=== PATIENT | female | born 1955 | race Caucasian/White ===

== ENCOUNTER 2020-09-27 15:48 | Outpatient (REF) | payer MEDICARE, BC, SELFPAY | END 2020-09-27 15:49 | disposition home or self-care (01) | LOC: HO.LAB 15:48 | PROVIDERS: Visit Provider Internal Medicine | DX: Z20.828 Contact with and (suspected) exposure to other viral communicable diseases (principal) | CPT/HCPCS: C9803; U0003 ==

== ENCOUNTER 2021-02-12 11:58 | Outpatient (REF) | payer MEDICARE, BC, SELFPAY | END 2021-02-12 11:59 | disposition home or self-care (01) | LOC: HO.HMGCLDS 11:58 | PROVIDERS: PCP Physician Assistant Medical; Visit Provider Internal Medicine | DX: Z20.822 Contact with and (suspected) exposure to COVID-19 (principal) | CPT/HCPCS: C9803; U0003; U0005 ==

== ENCOUNTER 2023-11-01 14:39 | Outpatient (AMB) | payer MEDICARE, SELFPAY ==
--- NOTE | 2023-11-01 14:52 | AM.OFFWIN_ITS ---
Intake Vital Signs 11/01/23 14:57 Height 5 ft 4 in Weight 139 lb BMI 23.9 BP 130/74 Blood Pressure Location Lt brachial Position Sitting Pulse 78 Pulse Source Pulse Oximeter Temp 98.2 F Temp Source Oral Pulse Oximetry (%) 97 Oxygen Delivery Method Room Air Intake Visit Reasons: EP cough chest tight Intake Note: pt is here for c.o cough for over weeks with chest congestion and tightness Patient Tobacco Use Status: Never used Tobacco Allergies No Known Allergies Allergy (Verified 11/01/23 15:31) Do you need a note to return to daycare/school/sports/work: No HPI EP cough chest tight HPI Details 68-year-old [facility]. Patient is reporting symptoms of an irritating nonproductive cough for the past month. Symptoms are worse at night with wheezing. She is just completing a course of Zithromax. [facility] Social History Patient Tobacco Use Status: Never used Tobacco Physical Exam Vital Signs: Last Vital Signs Temp 98.2 F 11/01/23 14:57 Pulse 78 11/01/23 14:57 BP 130/74 11/01/23 14:57 Pulse Ox 97 11/01/23 14:57 Oxygen Delivery Method Room Air 11/01/23 14:57 BMI result Body Mass Index 23.9 Const General: cooperative and healthy appearing Nutritional Appearance: well nourished Orientation/consciousness: patient oriented x3 Limitations: no limitations HEENT Head: Yes normal to inspection Eyes General: appearance normal, both eyes and all related structures Neck Neck: Yes normal visual inspection Chest Chest palpation & inspection: normal palpation of entire chest wall Resp Other: Scattered wheeze bilaterally. Effort & Inspection: normal respiratory effort Neuro General: patient oriented x3 Assessment & Plan Assessment & Plan (1) Acute bronchitis: Code(s): J20.9 - Acute bronchitis, unspecified Plan: Prednisone and albuterol called in. If symptoms do not improve to follow-up here. Chest x-ray was reviewed by me personally. No infiltrate seen. Orders: Orders XR chest 2V Today R05.9 - Cough, unspecified Coding Level of Care Code Est Pt Level 4 (26984) Diagnoses Acute bronchitis J20.9
[2023-11-01 14:57] VITALS: BP 130/74; PULSE 78; TEMP 36.8; O2SAT 97; BMI 23.9
== END 2023-11-01 15:32 | disposition home or self-care (01) ==
PROVIDERS: PCP Physician Assistant Medical; Visit Provider Internal Medicine
DX: J20.9 Acute bronchitis, unspecified (principal)
CPT/HCPCS: 99214

== ENCOUNTER 2023-11-01 15:21 | Outpatient (REF) | payer MEDICARE, SELFPAY ==
--- NOTE | ~2023-11-01 | XR_ITS ---
EXAMINATION: XR CHEST CLINICAL INFORMATION: Cough COMPARISON: None available. TECHNIQUE: 2 views of the chest were obtained. FINDINGS: No significant abnormality is noted involving the heart, lungs, mediastinum, bony thorax or soft tissues. XR/XR chest 2V IMPRESSION: Unremarkable examination.
== END 2023-11-01 15:22 | disposition home or self-care (01) ==
LOC: HO.HMGCX 15:21
PROVIDERS: PCP Physician Assistant Medical; Visit Provider Internal Medicine
DX: R05.9 Cough, unspecified (principal)
CPT/HCPCS: 71046

== ENCOUNTER 2024-04-21 09:12 | Outpatient (AMB) | payer MEDICARE, SELFPAY ==
[2024-04-21 09:13] VITALS: BP 112/74; PULSE 78; TEMP 36.7; O2SAT 97
--- NOTE | 2024-04-21 09:13 | MHC.OFFWIV ---
Intake Vital Signs 04/21/24 09:13 Height 5 ft 4 in BP 112/74 Blood Pressure Location Lt brachial Position Sitting Pulse 78 Pulse Source Pulse Oximeter Temp 98.1 F Temp Source Temporal Artery Scan Pulse Oximetry (%) 97 Intake Visit Reasons: EP LT eye sty Intake Note: pt is here for left eye sty Patient Tobacco Use Status: Never used Tobacco Allergies No Known Allergies Allergy (Verified 04/21/24 09:14) Do you need a note to return to daycare/school/sports/work: No HPI EP LT eye sty HPI Details This is a 69 year old female patient who presents to the walk-in clinic today for a stye on her left upper eyelid. She has had this for about 1 week. Has been using warm compresses and otc towelettes for this without resolution of stye. She does not wear contacts. She has not been wearing any makeup. Denies any eye pain, vision changes, or discharge from eye. Reports upper lid is very itchy and now her left eye has started to appear bloodshot. [facility] Social History Patient Tobacco Use Status: Never used Tobacco Review of Systems Const All systems reviewed & are unremarkable except as noted in HPI and below Physical Exam Vital Signs: Last Vital Signs Temp 98.1 F 04/21/24 09:13 Pulse 78 04/21/24 09:13 BP 112/74 04/21/24 09:13 Pulse Ox 97 04/21/24 09:13 Const General: cooperative and no acute distress Eyes Eyelids: Yes eyelid abnormality (hordeolum left upper lid) Conjunctivae: conjunctival abnormal left conjunctival injection diffuse Pupils: Equal, round and reactive pupils present and Pupil accommodation reflex normal EOM: EOMs intact bilaterally Direct Ophthalmoscopy: normal light reflex Neck Neck: Yes no lymphadenopathy Resp Effort & Inspection: normal respiratory effort Neuro Cranial nerves: Yes Equal, round and reactive pupils present Psych Appearance: grossly normal Mental Status: mental status grossly normal Speech and movement: Normal speech and movement present Assessment & Plan Assessment & Plan (1) Hordeolum of left upper eyelid: Code(s): H00.014 - Hordeolum externum left upper eyelid Qualifiers: Hordeolum type: externum Qualified Code(s): H00.014 - Hordeolum externum left upper eyelid Plan: Advised patient to continue with warm compress application. Her upper lid is slightly swollen and she has conjuntival injection - I am going to start her on an erythromycin ointment to apply in addition to conservative measures. We discussed indications, use, possible side effects of this. If he does not improve with treatment, and stye does not start to resolve or certainly if symptoms worsen, she should return to the clinic further evaluation. She verbalizes understanding and agrees to. Medications: New erythromycin Apply 0.5 inch to lower lid of left eye 4 times daily for 5 days 1 appl ophthalmic (eye) BID 5 days 3.5 grams 1RF H00.014 - Hordeolum externum left upper eyelid Coding Level of Care Code Est Pt Level 4 (71755) Diagnoses Hordeolum externum of left upper eyelid H00.014 Hordeolum type: externum
--- OUTSIDE RECORDS SUMMARY | 2024-04-21 09:13 | XMS_ITS | Continuity of Care Document ---
Author Organization [facility] C ancer [facility] Address [address] [place] [address]- Care Team Providers Care Reporter Name Role Phone Not on Staff, PCP Primary Care Physician Unavail able Encounter [facility] Date(s): 12/28/19 - 01/07/20 [facility] [address] [place] [address]- [facility] Attending Physician: Chanelle Miller Admitting Physician: AdmChanelle almeida Referring Physician: Admtr ArJett Allergies, Adverse Reactions, Alerts Substance Reaction Severity Status Nickel Active Medications aspirin 81 mg oral tablet 1 tablet = 81 mg, By Mouth, Daily, 0 Refills, Maintenance, 07/05/19 14:11:10 EDT Start Date: 07/05/19 Status: Ordered atorvastatin 40 mg oral tablet 1 tablet = 40 mg, By Mouth, Daily at bedtime, 0 Refills, Maintenance Start Date: 05/24/12 Status: Ordered Hydrea 500 mg oral capsule 1 capsule = 500 mg, By Mouth, Daily, Adjust as instructed by MD's office based on serial CBCs, # 90capsule, 1 Refills, Maintenance, 12/18/19 10:59:00 EDT, [id number], 163, cm, 07/05/19 13:38:00 EDT, Height, 63, kg, 07/05/19 13:38:00 EDT, Dry... Start Date: 12/18/19 Status: Ordered lisinopril 10 mg oral tablet 10 mg, 1, tablet, By Mouth, Daily, Refills 0, Maintenance, 12/08/18 1:16:33 EST Start Date: 12/08/18 Status: Ordered Synthroid 0.112 mg oral tablet 1 tablet, By Mouth, Daily, # 30 tablet, 5 Refills, Maintenance, Tablet Start Date: 06/22/12 Status: Ordered Problem List Condition Effective Dates Status Health Status Inform ant CAD - Coronary artery disease(Confirmed) Active Hyperlipidemia(Confirmed) Active Social History Social History Type Response Smoking Status Former smoker, quit more than 30 days ago entered on: 11/30/18 Sex
--- OUTSIDE RECORDS SUMMARY | 2024-04-21 09:13 | XMS_ITS | Continuity of Care Document ---
Author Organization [facility] an[facility] Address [address] [place] [address]- Care Team Providers Care Residential Roofer Helper Name Role Phone Angie Bailey MD Primary Care Physician [id number] Date(s): 08/19/22 - 12/14/22 [facility] [address] [place] [address]- Discharge Disposition: A-D/C Home Attending Physician: Vahe Sharp MD Admitting Physician: Vahe Sharp MD Referring Physician: Angie Bailey MD Allergies, Adverse Reactions, Alerts Substance Reaction Severity Status Nickel skin irritation,rash Active Medications aspirin 81 mg oral tablet 1 tablet = 81 mg, By Mouth, Every other day, 0 Refills, Maintenance, 07/05/19 14:11:10 EDT Start Date: 07/05/19 Status: Ordered atorvastatin 40 mg oral tablet 1 tablet = 40 mg, By Mouth, Daily at bedtime, 0 Refills, Maintenance Start Date: 05/24/12 Status: Ordered Eligen B12 1000 mcg oral tablet 1 tablet, By Mouth, Daily, 0 Refills, Maintenance, 01/06/22 13:29:00 EDT, Partial fill upon patientrequest if the prescription is for a schedule II opioid drug. Start Date: 01/06/22 Status: Ordered hydroxyurea 500 mg oral capsule 1 TO 2 CAPSULES, By Mouth, Daily, # 180 capsule, 3 Refills, [facility], 162.56, cm, 01/06/22 10:34:00 EDT, Height, 64.1, kg, 01/06/22 10:34:00 EDT, Dry Weight Start Date: 04/14/22 Status: Ordered levothyroxine 0.088 mg oral tablet 1 tablet = 88 mcg, By Mouth, Daily, 0 Refills, Maintenance, 02/12/21 13:44:00 EDT, Partial fill upon patient request if the prescription is for a schedule II opioid drug. Start Date: 02/12/21 Status: Ordered Vitamin D3 1000 intl units oral capsule 1 capsule = 1,000 International_Units, By Mouth, Daily, # 75 capsule, 0 Refills, Maintenance, 01/08/20 8:18:00 EDT, Capsule Start Date: 01/08/20 Status: Ordered Problem List Condition Confirmation Course Effective Dates Status H ealth Status Informant CAD - Coronary artery disease Confirmed Active Hyperlipidemia Confirmed Active Adnexal mass Confirmed Active Social History Social History Type Response Smoking Status Former smoker, quit more than 30 days ago entered on: 11/30/18 Sex Patient Care team information Care Team Personnel Name: Ruby Frias RN Position: [facility] SN RN Member Role: Primary Care Nurse Name: Angie Bailey MD Position: [facility] Outreach Member Role: PCP Address: Address: [address] [place] [address] - [address] [place], [place], [place] [address] Care Team Related Persons Name: ANGIE URIARTE Address: home [address] [place] [address] Name: DOUGLAS MERINO Address: home [address] [place] [address]
--- OUTSIDE RECORDS SUMMARY | 2024-04-21 09:13 | XMS_ITS | Continuity of Care Document ---
Author Organization [facility] C an[facility] Address [address] [place] [address]- Care Team Providers Care Show Horse Driver Name Role Phone Lynn GILLIS, Nitish Mccormick Primary Care Physician [phone] [id number] Date(s): 12/28/19 - 04/12/20 [facility] [address] [place] [address]- [facility] Discharge Disposition: A-D/C Home Attending Physician: Vahe Sharp MD Admitting Physician: Vahe Sharp MD Referring Physician: Not on Staff, Referring MD Allergies, Adverse Reactions, Alerts Substance Reaction [...] Status: Ordered Hydrea 500 mg oral capsule See Instructions, 1 tablet alternating with 2 tablets by Mouth Daily, # 45 capsule, 5 Refills, Maintenance, 02/12/20 10:52:00 EDT, [id number], 162.56, cm, 01/30/20 6:21:00 EDT, Height, 60.3, kg, 01/30/20 6:21:00 EDT, Dry Weight Start Date: 02/12/20 Status: Ordered Hydrea 500 mg oral capsule 1 capsule = 500 mg, By Mouth, Daily, Adjust as instructed by MD's office based on serial CBCs, # 90capsule, 1 Refills, Maintenance, 12/18/19 10:59:00 EDT, [id number], 163, cm, 07/05/19 13:38:00 EDT, Height, 63, kg, 07/05/19 13:38:00 EDT, Dry... Start Date: 12/18/19 Status: Ordered levothyroxine 125 mcg (0.125 mg) oral tablet TAKE 1 TABLET BY MOUTH EVERY DAY Start Date: 02/21/20 Status: Ordered lisinopril 10 mg oral tablet 10 mg, 1, tablet, By Mouth, Daily, Refills 0, Maintenance, 12/08/18 1:16:33 EST Start Date: 12/08/18 Status: Ordered Vitamin D3 1000 intl units oral capsule 1 capsule = 1,000 International_Units, By Mouth, Daily, # 75 capsule, 0 Refills, Maintenance, 01/08/20 8:18:00 EDT, Capsule Start Date: 01/08/20 Status: Ordered Problem List Condition Effective Dates Status Health Status Inform ant CAD - Coronary artery disease(Confirmed) Active Hyperlipidemia(Confirmed) Active Adnexal mass(Confirmed) Active Social History Social History Type Response Smoking Status Former smoker, quit more than 30 days ago entered on: 11/30/18 Sex
--- OUTSIDE RECORDS SUMMARY | 2024-04-21 09:13 | XMS_ITS | Continuity of Care Document ---
Author Organization [facility] ter Address [address] [place] [address]- Care Team Providers Care Fisheries Technical Officer Name Role Phone Bharati GILLIS, Slick Duque Primary Care Physician [phone] Encounter [facility] Date(s): 10/23/19 - 10/30/[address] [address]- [facility] Attending Physician: Aron GILLIS, Vahe Bajwa Allergies, Adverse Reactions, Alerts Substance Reaction Severity [...] MD's office based on serial CBCs, # 30capsule, 5 Refills, Maintenance, 07/20/19 15:22:51 EDT Start Date: 07/20/19 Status: Ordered lisinopril 10 mg oral tablet [...]
--- OUTSIDE RECORDS SUMMARY | 2024-04-21 09:13 | XMS_ITS | Continuity of Care Document ---
Author Organization [facility] C [facility] Address [address] [place] [address]- Care Team Providers Care Internal Carver Name Role Phone Lynn GILLIS, Angie Mccormick Primary Care Physician Encounter [facility] Date(s): 09/06/23 - 10/06/23 [facility] [address] [place] [address] Allergies, Adverse Reactions, Alerts Substance Reaction Severity [...] opioid drug. Start Date: 01/06/22 Status: Ordered Hydrea 500 mg oral capsule 1-2 capsule, By Mouth, Daily, dose varies based on CBCs, # 180 capsule, 5 Refills, Maintenance, 07/13/23 9:25:00 EDT, [id number], Partial fill upon patient request if the prescription is for a schedule II opioid drug., 162.56, cm, ... Start Date: 07/13/23 Status: Ordered hydroxyurea 500 mg oral capsule 1 TO 2 CAPSULES, By Mouth, Daily, # 180 capsule, 3 Refills, [facility], 162.56, cm, 01/06/22 10:34:00 EDT, Height, 64.1, [...] Team Personnel Name: Ruby Frias RN Position: [facility] SN RN Member Role: Primary Care Nurse Name: Lorie Clay Position: [facility] Onco RN Member Role: Primary Care Nurse Name: Angie Bailey MD Position: [facility] Outreach Member Role: PCP Address: Address: [address] [place] [address] - [address] [employer] [employer], [place] [address]- Care Team Related Persons Name: ANGIE URIARTE Address: [address] [place] [address] Name: DOUGLAS MERINO Address: [address] [place] [address]
--- OUTSIDE RECORDS SUMMARY | 2024-04-21 09:13 | XMS_ITS | Continuity of Care Document ---
Author Organization [facility] Address [address] [place] [address]- Care Team Providers Care Heel Room Supervisor Name Role Phone Nitish Bailey MD Primary Care Physician [phone] Encounter [facility] Date(s): 06/07/20 - 07/07/20 [facility] [address] [place] [address]- [facility] Allergies, Adverse Reactions, Alerts Substance Reaction Severity Status Nickel skin irritation,rash Active Medications aspirin 81 mg oral tablet 1 tablet = 81 mg, By Mouth, Every other day, 0 Refills, Maintenance, 07/05/19 14:11:10 EDT Start Date: 07/05/19 Status: Ordered atorvastatin 40 mg oral tablet 1 tablet = 40 mg, By Mouth, Daily at bedtime, 0 Refills, Maintenance Start Date: 05/24/12 Status: Ordered hydroxyurea 500 mg oral capsule 1 capsule, By Mouth, Daily, DIRECTED BY [facility] OFFICE., # 90 capsule, 1 Refills, Acute, 05/30/20 11:50:00 EDT, [facility], 162.56, cm, 02/21/20 11:29:00 EDT, Height, 60.3, kg, 01/30/20 6:21:00 EDT, Dry Weight Start Date: 05/30/20 Status: Ordered levothyroxine 125 mcg (0.125 mg) [...]
--- OUTSIDE RECORDS SUMMARY | 2024-04-21 09:13 | XMS_ITS | Continuity of Care Document ---
Author Organization [facility] C ancer Care Address [address] [place] [address]- Care Team Providers Care Crop Duster Helper Name Role Phone Sarah Hensley Primary Care Physician Encounter [facility] Date(s): 12/23/22 - 02/07/24 [facility] [address] [place] [address] Discharge Disposition: A-D/C Home Attending Physician: Funmilayo Aguilar MD Admitting Physician: Funmilayo Aguilar MD Referring Physician: Sarah Hensley Allergies, Adverse Reactions, Alerts Substance Reaction Severity [...] Mouth, Daily, # 180 capsule, 3 Refills, [facility], 162.56, cm, 01/06/22 10:34:00 EDT, Height, 64.1, [...] Hyperlipidemia Confirmed Active Adnexal mass Confirmed Active Vital Signs Most recent to oldest [Reference Range]: 1 2 Height 162.56 cm (07/13/23 9:13 AM) 162.56 cm (01/05/23 10:00 AM) Weight 63.6 kg (07/13/23 9:13 AM) 63.8 kg (01/05/23 10:00 AM) Oxygen Saturation [94-100 %] 99 % (07/13/23 9:13 AM) 99 % (01/05/23 10:00 AM) Pulse Rate [55-90 bpm] 59 bpm (07/13/23 9:13 AM) 56 bpm (01/05/23 10:00 AM) Body Mass Index [18.5-24.99 kg/m2] 24.07 kg/m2 (07/13/23 9:13 AM) 24.14 kg/m2 (01/05/23 10:00 AM) Blood Pressure [90-138/55-84 mm Hg] 123/ 75mm Hg (07/13/23 9:13 AM) 129/77mm Hg (01/05/23 10:00 AM) Temperature [96.8-100.4 DegF] 98.5 DegF (07/13/23 9:13 AM) 98.2 DegF (01/05/23 10:00 AM) Mode of Delivery (Oxygen) Room air (07/13/23 9:13 AM) Room air (01/05/23 10:00 AM) Blood pressure sites Arm, right (07/13/23 9:13 AM) Arm, right (01/05/23 10:00 AM) Temperature Route Oral (07/13/23 9:13 AM) Temporal (01/05/23 10:00 AM) Dry Weight 63.6 kg (07/13/23 9:13 AM) 63.8 kg (01/05/23 10:00 AM) Weight Obtained Via Standing scale (07/13/23 9:13 AM) Standing scale (01/05/23 10:00 AM) Dry Weight Obtained Via Standing scale (07/13/23 9:13 AM) Standing scale (01/05/23 10:00 AM) Social History Social History Type Response Smoking Status Former smoker, quit more than 30 days ago entered on: 11/30/18 Sex Note * Malu Nickerson MA: PERFORM, SIGN, VERIFY Event Display: Patient Education/Instruction Authored Date: [id number] [facility] *Heme/Onc Adult Clinical Summary Name HORTENCIA FERGUSON Age 67 Years 1955 PCP Lynn GILLIS, Angie Mccormick PCP Visit Date 12/23/2022 15:54:00 Additional Instructions: Scheduled Appointments?? Future Appointments ?No Future Appointments Scheduled Follow-Up Instructions ?? With: Address: When: Vahe Sharp [address] [place] [address] for Cancer Care, [facility] [place] [address] Business (1) 07/13/2023 9:15 AM Diagnosis Medications: Please continue your medications until treatment is completed or stopped by your provider. Discuss any questions related to medications with your provider. Medications to Continue with No Changes These medications were not printed or sent to your pharmacy Aspirin (aspirin 81 mg oral tablet) 1 tab(s) Oral every other day. Next Dose: Atorvastatin (atorvastatin 40 mg oral tablet) 1 tab(s) Oral Daily at Bedtime. Next Dose: Cholecalciferol (Vitamin D3 1000 intl units oral capsule) 1 capsule Oral Daily. Next Dose: Cyanocobalamin (Eligen B12 1000 mcg oral tablet) 1 tab(s) Oral Daily. Next Dose: Hydroxyurea (hydroxyurea 500 mg oral capsule) 1 TO 2 CAPSULES Oral Daily. Refills: 3. Next Dose: Levothyroxine (levothyroxine 0.088 mg oral tablet) 1 tab(s) Oral Daily. Next Dose: Allergy Info:?? Nickel Medications Given This Visit Future Orders ?No future orders Vital Signs Height 162.56 cm Weight 63.8 kg BMI 24.14 kg/m2 Blood Pressure 129 mm Hg/77 mm Hg Temperature 98.2 DegF Pulse Rate 56 bpm Respiratory Rate 02 Sat Mode of Delivery 99 %/Room air You can now view a summary of your hospital visit from the comfort of your home through a free online portal called [employer]. [employer] is a website that allows you to securely view your medical information including discharge summary, medications and follow-up visits. ??You can alsosend a secure electronic message to your doctor???s office to request appointments, renew medications or just ask a question. You can enroll at [email or web address] or register during your next office visit. Disclaimer:?? The information provided is of a general nature and is intended to be used in conjunction with the recommendations and advice of your health care practitioner. ??Every effort has been made to ensure that the information provided is accurate and complete at the time it is provided to you however, as your needs change, or, as new ??information becomes available, different or additional instructions may be required. If you have questions, please consult with your primary care provider or pharmacist, as appropriate. ??This information is not intended to serve as substitution for assessment and evaluation by a qualified health care provider. If you do not have a primary care provider, you may find a [facility] provider by calling [facility] at [phone]. For information about the plan of care including goals and instructions for your diagnosis, please see the patient education orders section of this document. Patient Education Materials?? The content of this educational material or handout may have been modified, supplemented, or adapted from its original content and format to support your individualized medical care. Patient Care team information Care Team Personnel Name: Ruby Frias RN Position: [facility] RN Member Role: Primary Care Nurse Name: Lorie Clay Position: [facility] Onco RN Member Role: Primary Care Nurse Name: Sarah Hensley Position: Reference Physician Member Role: PCP Address: Address: [address] [place] [address] [address] Care Team Related Persons Name: ANGIE URIARTE Address: [address] [place] [address] Name: DOUGLAS MERINO Address: [address] [place] [address]
--- OUTSIDE RECORDS SUMMARY | 2024-04-21 09:13 | XMS_ITS | Continuity of Care Document ---
Author Organization [facility] Address [address] [place] [address]- Care Team Providers Care Dedicated Intermodal Truck Driver Name Role Phone Lynn GILLIS, Nitish Mccormick Primary Care Physician Encounter [facility] Date(s): 01/24/21 - 02/23/21 [facility] [address] [place] [id number] Allergies, Adverse Reactions, Alerts Substance [...] Daily, dose varies based on CBCs, # 60 capsule, 5 Refills, Maintenance, 12/08/20 13:34:00 EST, [facility]pharmacy #[id number], Partial fill upon patient request if the prescription is for a schedule II opioid drug., 162.56, cm, 07/10/20 14:... Start Date: 12/08/20 Status: Ordered hydroxyurea 500 mg oral capsule See Instructions, TAKE 1 CAPSULES BY MOUTH ALTERNATING WITH 2 CAPSULES BY MOUTH DAILY, # 135 capsule, 1 Refills, Acute, [facility], 162.56, cm, 07/10/20 14:08:00 EDT, Height, 62.3, kg, 07/10/20 14:08:00 EDT, Dry Weight Start Date: 08/27/20 Status: Ordered levothyroxine 0.088 mg oral tablet 1 tablet = 88 mcg, By Mouth, Daily, 0 Refills, Maintenance, 02/12/21 13:44:00 EDT, Partial fill upon patient request if the prescription is for a schedule II opioid drug. Start Date: 02/12/21 Status: Ordered levothyroxine 125 mcg (0.125 mg) [...]
--- OUTSIDE RECORDS SUMMARY | 2024-04-21 09:13 | XMS_ITS | Continuity of Care Document ---
Author Organization [facility] ancer Care Address [address] [place] [address]- Care Team Providers Care Microbiology Professor Name Role Phone Nitish Bailey MD Primary Care Physician [phone] Encounter [facility] [id number] Date(s): 01/02/21 - 03/09/21 [facility] [address] [place] [address]- Discharge Disposition: A-D/C Home Attending Physician: Vaeh Sharp MD Admitting Physician: Vahe Sharp MD Referring Physician: Nitish Bailey MD Allergies, Adverse Reactions, Alerts Substance [...] capsule, 5 Refills, Maintenance, 12/08/20 13:34:00 EST, [facility]/pharmacy #[id number], Partial fill upon patient request if the prescription is for a schedule II opioid drug., 162.56, cm, 07/10/20 14:... Start Date: 12/08/20 Status: Ordered hydroxyurea 500 mg oral capsule See Instructions, TAKE 1 CAPSULES BY MOUTH ALTERNATING WITH 2 CAPSULES BY MOUTH DAILY, # 135 capsule, 1 Refills, Acute, [facility], 162.56, cm, 07/10/20 14:08:00 EDT, Height, 62.3, [...] disease(Confirmed) Active Hyperlipidemia(Confirmed) Active Adnexal mass(Confirmed) Active Vital Signs Most recent to oldest [Reference Range]: 1 Height 162.56 cm (01/07/21 8:58 AM) Weight 68.3 kg (01/07/21 8:58 AM) Oxygen Saturation [94-100 %] 99 % (01/07/21 8:58 AM) Pulse Rate [55-90 bpm] 63 bpm (01/07/21 8:58 AM) Body Mass Index [18.5-24.99] 25.85 *H* (01/07/21 8:58 AM) Blood Pressure [90-138/55-84 mm Hg] 134/ 76mm Hg (01/07/21 8:58 AM) Temperature [96.8-100.4 DegF] 98.9 DegF (01/07/21 8:58 AM) Blood pressure sites Arm, right (01/07/21 8:58 AM) Temperature Route Temporal (01/07/21 8:58 AM) Dry Weight 68.3 kg (01/07/21 8:58 AM) Weight Obtained Via Standing scale (01/07/21 8:58 AM) Dry Weight Obtained Via Standing scale (01/07/21 8:58 AM) Social History Social History Type Response Smoking Status Former smoker, quit more than 30 days ago entered on: 11/30/18 Sex
--- OUTSIDE RECORDS SUMMARY | 2024-04-21 09:13 | XMS_ITS | Continuity of Care Document ---
Author Organization [facility] ancer Care Address [address] [place] [address]- Care Team Providers Care Bingo Checker Name Role Phone Angie Bailey MD Primary Care Physician [phone] [id number] Date(s[facility] 04/09/21 - 08/18/22 [facility] [address] [place] [address]- Discharge Disposition: A-D/C Home Attending Physician: Vahe [...] Mouth, Daily, # 180 capsule, 3 Refills, [facility] 21409, 162.56, cm, 01/06/22 10:34:00 EDT, Height, 64.1, [...] recent to oldest [Reference Range]: 1 2 3 Height 162.56 cm (07/14/22 12:54 PM) 162.56 cm (01/06/22 10:34 AM) 162.56 cm (07/08/21 9:09 AM) Weight 64.5 kg (07/14/22 12:54 PM) 64.1 kg (01/06/22 10:34 AM) 64.1 kg (07/08/21 9:09 AM) Pulse Rate [55-90 bpm] 57 bpm (07/14/22 12:54 PM) 57 bpm (01/06/22 10:34 AM) 60 bpm (07/08/21 9:09 AM) Body Mass Index [18.5-24.99 kg/m2] 24.41 kg/m2 (07/14/22 12:54 PM) Body Mass Index [18.5-24.99] 24.26 (01/06/22 10:34 AM) 24.26 (07/08/21 9:09 AM) Blood Pressure [90-138/55-84 mm Hg] 146/75mm Hg *H* (07/14/22 12:54 PM) 138/72mm Hg (01/06/22 10:34 AM) 120/67mm Hg (07/08/21 9:09 AM) Temperature [96.8-100.4 DegF] 97.5 DegF (07/14/22 12:54 PM) 97.7 DegF (01/06/22 10:34 AM) 97.8 DegF (07/08/21 9:09 AM) Blood pressure sites Arm, left (07/14/22 12:54 PM) Arm, right (01/06/22 10:34 AM) Arm, right (07/08/21 9:09 AM) Temperature Route Oral (07/14/22 12:54 PM) Femoral (01/06/22 10:34 AM) Temporal (07/08/21 9:09 AM) Dry Weight 64.5 kg (07/14/22 12:54 PM) 64.1 kg (01/06/22 10:34 AM) 64.1 kg (07/08/21 9:09 AM) Weight Obtained Via Standing scale (07/14/22 12:54 PM) Standing scale (01/06/22 10:34 AM) Standing scale (07/08/21 9:09 AM) Dry Weight Obtained Via Standing scale (07/14/22 12:54 PM) Standing scale (01/06/22 10:34 AM) Standing scale (07/08/21 9:09 AM) Social History Social History Type Response Smoking Status Former smoker, quit more than 30 days ago entered on: 11/30/18 Sex Note * Betzaida Rosas MA: PERFORM, SIGN, VERIFY Event Display: Patient Education/Instruction Authored Date: [facility] *Heme/Onc Adult Clinical Summary Name HORTENCIA FERGUSON Age 66 Years 1955 PCP Lynn GILLIS, Angie Mccormick PCP Visit Date 04/09/2021 11:16:00 Additional Instructions: Scheduled Appointments?? Future Appointments ?No Future Appointments Scheduled Follow-Up Instructions ?? With: Address: When: [facility], [address] [place] [address] [place] [address] Business (1) 01/05/2023 1:30 PM With: Address: [facility]: [facility] [address] [place] [address] [place] [address] Business (1) 01/06/2022 10:30 AM Diagnosis Medications: Please continue your medications until treatment is completed or stopped by your provider. Discuss any questions related to medications with your provider. Medications to Continue Taking That Have Changed These medications were not printed or sent to your pharmacy - Hydroxyurea (hydroxyurea 500 mg oral capsule) 1 TO 2 CAPSULES Oral Daily. Refills: 1. Next Dose: Medications to Continue with No Changes These medications were not printed or sent to your pharmacy Aspirin (aspirin 81 mg oral tablet) 1 tab(s) Oral every other day. Next Dose: Atorvastatin (atorvastatin 40 mg oral tablet) 1 tab(s) Oral Daily at Bedtime. Next Dose: Cholecalciferol (Vitamin D3 1000 intl units oral capsule) 1 capsule Oral Daily. Next Dose: Levothyroxine (levothyroxine 0.088 mg oral tablet) 1 tab(s) Oral Daily. Next Dose: Levothyroxine (levothyroxine 125 mcg (0.125 mg) oral tablet) TAKE 1 TABLET BY MOUTH EVERY DAY. Next Dose: No Longer Take the Following Medications Lisinopril (lisinopril 10 mg oral tablet) 1 tab(s) Oral Daily. Allergy Info:?? Nickel Medications Given This Visit Future Orders ?No future orders Vital Signs Height 162.56 cm Weight 64.1 kg BMI 24.26 Blood Pressure 138 mm Hg/72 mm Hg Temperature 97.7 DegF Pulse Rate 57 bpm Respiratory Rate 02 Sat Mode of Delivery / You can now view a summary of your hospital visit from the comfort of your home through a free online portal called ViS. ViS is a website that allows you to securely view your medical information including discharge summary, medications and follow-up visits. ??You can alsosend a secure electronic message to your doctor???s office to request appointments, renew medications or just ask a question. You can enroll at [email or web address] or register during your next office visit. [...] primary care provider, you may find a [facility] provider by calling [facility] at [phone]. For information about the plan of care including goals and instructions for your diagnosis, please see the patient education orders section of this document. Patient Education Materials?? The content of this educational material or handout may have been modified, supplemented, or adapted from its original content and format to support your individualized medical care. * Jacquelyn Browne: PERFORM, SIGN, VERIFY Event Display: Patient Education/Instruction Authored Date: [id number] [facility] *Heme/Onc Adult Clinical Summary Name HORTENCIA FERGUSON Age 66 Years 1955 PCP Lynn GILLIS, Angie Mccormick PCP Visit Date 04/09/2021 11:16:00 Additional Instructions: Scheduled Appointments?? Future Appointments ?No Future Appointments Scheduled Follow-Up Instructions ?? With: Address: When: [facility], [facility] [place] [address] Business (1) 01/06/2022 10:30 AM Diagnosis Medications: Please continue your medications until treatment is completed or stopped by your provider. Discuss any questions related to medications with your provider. Medications to Continue Taking That Have Changed These medications were not printed or sent to your pharmacy - Hydroxyurea (hydroxyurea 500 mg oral capsule) 1 TO 2 CAPSULES Oral Daily. Refills: 1. Next Dose: Medications to Continue with No Changes These medications were not printed or sent to your pharmacy Aspirin (aspirin 81 mg oral tablet) 1 tab(s) Oral every other day. Next Dose: Atorvastatin (atorvastatin 40 mg oral tablet) 1 tab(s) Oral Daily at Bedtime. Next Dose: Cholecalciferol (Vitamin D3 1000 intl units oral capsule) 1 capsule Oral Daily. Next Dose: Levothyroxine (levothyroxine 0.088 mg oral tablet) 1 tab(s) Oral Daily. Next Dose: Levothyroxine (levothyroxine 125 mcg (0.125 mg) oral tablet) TAKE 1 TABLET BY MOUTH EVERY DAY. Next Dose: Lisinopril (lisinopril 10 mg oral tablet) 1 tab(s) Oral Daily. Next Dose: Allergy Info:?? Nickel Medications Given This Visit Future Orders ?No future orders Vital Signs Height 162.56 cm Weight 64.1 kg BMI 24.26 Blood Pressure 120 mm Hg/67 mm Hg Temperature 97.8 DegF Pulse Rate 60 bpm Respiratory Rate 02 Sat Mode of Delivery / You can now view a summary of your hospital visit from the comfort of your home through a free online portal called ViS. ViS is a website that allows you to securely view your medical information including discharge summary, medications and follow-up visits. ??You can alsosend a secure electronic message to your doctor???s office to request appointments, renew medications or just ask a question. You can enroll at [email or web address] or register during your next office visit. [...] primary care provider, you may find a [facility] provider by calling [facility] Link at [phone]. For information about the plan of care [...] Team Personnel Name: Ruby Frias RN Position: [facility] SN RN Member Role: Primary Care Nurse Name: Angie Bailey MD Position: [facility] Outreach Member Role: PCP Address: Address: [address] [place] [address] - [address] [place] [address] [employer] [place], [place] [address] Care Team Related Persons Name: ANGIE URIARTE Address: home [address] [place] [address] Name: DOUGLAS MERINO Address: home [address] [place] [address]
--- OUTSIDE RECORDS SUMMARY | 2024-04-21 09:13 | XMS_ITS | Continuity of Care Document ---
Author Organization [facility] Address [address] [place] [address]- Care Team Providers Care Certification Engineer Name Role Phone Lynn GILLIS, Nitish Mccormick Primary Care Physician [phone] [place] [facility] [place](s): 12/05/20 - 01/04/21 [facility] [address] [place] [address] Allergies, Adverse Reactions, Alerts Substance Reaction [...] capsule, 5 Refills, Maintenance, 12/08/20 13:34:00 EST, [facility]/pharmacy #[id number], Partial fill upon patient request if the prescription is for a schedule II opioid drug., 162.56, cm, 07/10/20 14:... Start Date: 12/08/20 Status: Ordered hydroxyurea 500 mg oral capsule See Instructions, TAKE 1 CAPSULES BY MOUTH ALTERNATING WITH 2 CAPSULES BY MOUTH DAILY, # 135 capsule, 1 Refills, Acute, [facility] 53412, 162.56, cm, 07/10/20 14:08:00 EDT, Height, 62.3, kg, 07/10/20 14:08:00 EDT, Dry Weight Start Date: 08/27/20 Status: Ordered levothyroxine 125 mcg (0.125 mg) [...]
--- OUTSIDE RECORDS SUMMARY | 2024-04-21 09:13 | XMS_ITS | Continuity of Care Document ---
Author Organization [facility] Address [address] [place] [address]- Care Team Providers Care Senior Analytical Chemist Name Role Phone Denis GILLIS, Urszula Mccormick Primary Care Physician [place] [facility] [place] 03/01/20 [facility] [address] [place] [address]- [facility] Attending Physician: Tiana Sandoval MD Admitting Physician: Tiana Sandoval MD Referring Physician: Not on Staff, Referring [...]
--- OUTSIDE RECORDS SUMMARY | 2024-04-21 09:13 | XMS_ITS | Continuity of Care Document ---
Author Organization [facility] Address [address] [place] [address]- Care Team Providers Care Heat Reader Name Role Phone Nitish Bailey MD Primary Care Physician [place] [facility]13/20 - 06/12/20 [facility] [address] [place] [address]- [facility] Allergies, Adverse Reactions, Alerts Substance Reaction Severity [...] Refills, Acute, 05/30/20 11:50:00 EDT, [facility], 162.56, cm, 02/21/20 11:29:00 EDT, Height, 60.3, [...]
--- OUTSIDE RECORDS SUMMARY | 2024-04-21 09:13 | XMS_ITS | Continuity of Care Document ---
Author Organization [facility] an[facility] Address [address] [place] [address]- Care Team Providers Care Nursing Home Manager Name Role Phone Jericho LOO, Sarah Colmenares Primary Care Physician En[facility] Date(s): 02/07/24 - 03/08/24 [facility] [address] [place] [address]- Attending Physician: Chanelle Miller Admitting Physician: Chanelle Miller Referring Physician: AdmtrChanelle Allergies, Adverse Reactions, Alerts Substance Reaction Severity [...] Mouth, Daily, # 180 capsule, 3 Refills, [facility] 26034, 162.56, cm, 01/06/22 10:34:00 EDT, Height, 64.1, [...] 30 days ago entered on: 11/30/18 Sex Cardiology * Event Display: EKG Non BH Authored Date: Laboratory * Event Display: Non BH Lab Results Authored Date: * Event Display: Non BH Lab Results Authored Date: * Event Display: Non BH Lab Results Authored Date: * Event Display: Non BH Lab Results Authored Date: * Event Display: Non BH Lab Results Authored Date: * Event Display: Non BH Lab Results Authored Date: Patient Care team information Care Team Personnel Name: Ruby Frias RN Position: [facility] RN Member Role: Primary Care Nurse Name: Lorie Clay Position: [facility] RN Member Role: Primary Care Nurse Name: Sarah Hensley Position: Reference Physician Member Role: PCP Address: Address: [address] [place] [address] [address] Care Team Related Persons Name: ANGIE URIARTE Address: home [address] [place] [address] Name: DOUGLAS MERINO Address: home [address] [place] [address]
--- OUTSIDE RECORDS SUMMARY | 2024-04-21 09:13 | XMS_ITS | Continuity of Care Document ---
Author Organization [facility] M ed[facility] Address [address] [place] [address]- Care Team Providers Care Dewer Name Role Phone Bharati GILLIS, Slick Duque Primary Care Physician [phone] [place] [facility] [place] 11/22/19 - 12/02/19 [facility] [address] [place] [address]- [facility] Attending Physician: Chanelle Miller Admitting Physician: Chanelle [...]
--- OUTSIDE RECORDS SUMMARY | 2024-04-21 09:13 | XMS_ITS | Continuity of Care Document ---
Author Organization [facility] Address [address] [place] [address]- Care Team Providers Care Senior Administrative Assistant Name Role Phone Bharati GILLIS, Slick Duque Primary Care Physician [phone] [place] [facility] Date(s): 11/20/19 - 11/20/[address] [address]- [facility] Attending Physician: Aron GILLIS, Vahe Bajwa Allergies, [...]
--- OUTSIDE RECORDS SUMMARY | 2024-04-21 09:13 | XMS_ITS | Continuity of Care Document ---
Author Organization [facility] Address [address] [place] [address]- Care Team Providers Care Utilities Estimator And Drafter Name Role Phone Nitish Bailey MD Primary Care Physician [place] [facility] [place] 01/06/21 - 03/21/21 [facility] [address] [place] [address] Attending Physician: Marvin Capps MD Admitting Physician: Marvin Capps MD Referring Physician: Nitish Bailey MD Allergies, [...] capsule, 5 Refills, Maintenance, 12/08/20 13:34:00 EST, [facility]/pharmacy #[id number], Partial fill upon patient request if the prescription is for a schedule II opioid drug., 162.56, cm, 07/10/20 14:... Start Date: 12/08/20 Status: Ordered hydroxyurea 500 mg oral capsule See Instructions, TAKE 1 CAPSULES BY MOUTH ALTERNATING WITH 2 CAPSULES BY MOUTH DAILY, # 135 capsule, 1 Refills, Acute, [facility], 162.56, cm, 07/10/20 14:08:00 EDT, Height, 62.3, [...]
--- OUTSIDE RECORDS SUMMARY | 2024-04-21 09:13 | XMS_ITS | Continuity of Care Document ---
Author Organization [facility] Pulmonary M edicine Address [address] [place] [address]- Care Team Providers Care Visitor Information Assistant Name Role Phone Lynn GILLIS, Angie Mccormick Primary Care Physician En[place] [facility] [place] Date(s): 06/17/23 - 07/17/23 [facility] Medicine [address] [place] [address] All[facility]ies, Adverse Reactions, Alerts Substance Reaction Severity [...] Mouth, Daily, # 180 capsule, 3 Refills, [facility] 25816, 162.56, cm, 01/06/22 10:34:00 EDT, Height, 64.1, [...] Team Personnel Name: Ruby Frias RN Position: [facility] SN RN Member Role: Primary Care Nurse Name: Lorie Clay Position: [facility] Onco RN Member Role: Primary Care Nurse Name: Angie Bailey MD Position: [facility] Outreach Member Role: PCP Address: Address: [address] [place] [address] - [address] [place] [address] [employer] [place] [address] Care Team Related Persons Name: ANGIE URIARTE Address: [address] [place] [address] Name: DOUGLAS MERINO Address: [address] [place] [address]
--- OUTSIDE RECORDS SUMMARY | 2024-04-21 09:13 | XMS_ITS | Continuity of Care Document ---
Author Organization [facility] Address [address] [place] [address]- Care Team Providers Care Storekeeper Engineering Name Role Phone Not on Staff, PCP Primary Care Physician Unavail able [place] [facility] [place]20 - 03/15/20 [facility] On[facility] [address] [place] [address]- [facility] Attending Physician: Tiana Sandoval MD Admitting Physician: Tiana Sandoval MD Referring Physician: Denis GILLIS, Urszula Mccormick Allergies, Adverse Reactions, Alerts Substance Reaction Severity [...]
--- OUTSIDE RECORDS SUMMARY | 2024-04-21 09:13 | XMS_ITS | Continuity of Care Document ---
Author Organization [facility] Address [address] [place] [address]- Care Team Providers Care Food Service Assistant Name Role Phone Lynn GILLIS, Nitish Mccormick Primary Care Physician [place] [facility] [place](s): 04/18/20 - 05/18/20 [facility] [address] [place] [address]- [facility] Allergies, Adverse Reactions, Alerts Substance Reaction Severity [...]
--- OUTSIDE RECORDS SUMMARY | 2024-04-21 09:14 | XMS_ITS | Continuity of Care Document ---
Author Organization [facility] ancer Care Address [address] [place] [address]- Care Team Providers Care Gallery Manager Name Role Phone Lynn GILLIS, Angie Mccormick Primary Care Physician [phone] [id number] Date(s): 12/23/22 - 01/22/23 [facility] [address] [place] [address]- Attending Physician: Chanelle Miller Admitting Physician: Chanelle [...] Mouth, Daily, # 180 capsule, 3 Refills, [facility]1474, 162.56, cm, 01/06/22 10:34:00 EDT, Height, 64.1, [...] Team Personnel Name: Ruby Frias RN Position: [facility] SN RN Member Role: Primary Care Nurse Name: Lorie Clay Position: [facility] Onco RN Member Role: Primary Care Nurse Name: Angie Bailey MD Position: [facility] Outreach Member Role: PCP Address: Address: [address] [place] [address] - [address] [place] [address] [employer], [address] Care Team Related Persons Name: ANGIE URIARTE Address: [address] [place] [address] Name: DOUGLAS MERINO Address: [address] [place] [address]
--- OUTSIDE RECORDS SUMMARY | 2024-04-21 09:14 | XMS_ITS | Continuity of Care Document ---
Author Organization [facility] Address [address] [place] [address]- Care Team Providers Care Metallurgy Teacher Name Role Phone Lynn GILLIS, Nitish Mccormick Primary Care Physician En[place] [facility] [place] Date(s): 05/22/20 - 06/21/20 [facility] [address] [place] [address]- [facility] Allergies, Adverse Reactions, Alerts Substance Reaction Severity [...] Refills, Acute, 05/30/20 11:50:00 EDT, [facility], 162.56, cm, 02/21/20 11:29:00 EDT, Height, 60.3, [...]
--- OUTSIDE RECORDS SUMMARY | 2024-04-21 09:14 | XMS_ITS | Continuity of Care Document ---
Author Organization [facility] Address [address] [place] [address]- Care Team Providers Care Rf Test Engineer Name Role Phone Lynn GILLIS, Nitish Mccormick Primary Care Physician [place] [facility] [place]/20 - 03/21/21 [facility] [address] [place] [address] [address] Attending Physician: Marvin Capps MD Admitting Physician: Marvin Capps MD Referring Physician: Denis GILLIS, Urszula Mccormick [...] capsule, 5 Refills, Maintenance, 12/08/20 13:34:00 EST, [facility]/pharmacy #[id number], Partial fill upon patient request if the prescription is for a schedule II opioid drug., 162.56, cm, 07/10/20 14:... Start Date: 12/08/20 Status: Ordered hydroxyurea 500 mg oral capsule See Instructions, TAKE 1 CAPSULES BY MOUTH ALTERNATING WITH 2 CAPSULES BY MOUTH DAILY, # 135 capsule, 1 Refills, Acute, [facility], 162.56, cm, 07/10/20 14:08:00 EDT, Height, 62.3, [...]
--- OUTSIDE RECORDS SUMMARY | 2024-04-21 09:14 | XMS_ITS | Continuity of Care Document ---
Author Organization [facility]iology Address [address] [place] [address]- Care Team Providers Care Mechanical Energy Engineer Name Role Phone Not on Staff, PCP Primary Care Physician Unavail able [place] [facility] [place]): [place]20 - 03/22/20 [facility] [address] [place] [address]- [facility] Attending Physician: Jefry GILLIS, Marvin De Paz Referring Physician: Sarah Hensley Allergies, Adverse Reactions, [...]
--- OUTSIDE RECORDS SUMMARY | 2024-04-21 09:14 | XMS_ITS | Continuity of Care Document ---
Author Organization [facility] Pulmonary M edicine Address [address] [place] [address]- Care Team Providers Care Mover Name Role Phone Lynn GILLIS, Nitish Mccormick Primary Care Physician Encounter [facility] [place] Date(s): 12/25/20 - 01/24/21 [facility] Pulmonary Medicine [address] [place] [address]- Attending Physician: Chanelle Miller Admitting Physician: Chanelle [...] capsule, 5 Refills, Maintenance, 12/08/20 13:34:00 EST, [facility]/pharmacy #[id number], Partial fill upon patient request if the prescription is for a schedule II opioid drug., 162.56, cm, 07/10/20 14:... Start Date: 12/08/20 Status: Ordered hydroxyurea 500 mg oral capsule See Instructions, TAKE 1 CAPSULES BY MOUTH ALTERNATING WITH 2 CAPSULES BY MOUTH DAILY, # 135 capsule, 1 Refills, Acute, [facility], 162.56, cm, 07/10/20 14:08:00 EDT, Height, 62.3, [...]
--- OUTSIDE RECORDS SUMMARY | 2024-04-21 09:14 | XMS_ITS | Continuity of Care Document ---
Author Organization [facility] ancer Care Address [address] [place] [address]- Care Team Providers Care Welding Engineer Name Role Phone Lynn GILLIS, Nitish Mccormick Primary Care Physician [phone] [place] [facility] [place] 01/07/21 - 02/06/21 [facility] [address] [place] [id number] Allergies, Adverse Reactions, Alerts [...] capsule, 5 Refills, Maintenance, 12/08/20 13:34:00 EST, [facility]/pharmacy #[id number], Partial fill upon patient request if the prescription is for a schedule II opioid drug., 162.56, cm, 07/10/20 14:... Start Date: 12/08/20 Status: Ordered hydroxyurea 500 mg oral capsule See Instructions, TAKE 1 CAPSULES BY MOUTH ALTERNATING WITH 2 CAPSULES BY MOUTH DAILY, # 135 capsule, 1 Refills, Acute, [facility] STORE 66593, 162.56, cm, 07/10/20 14:08:00 EDT, Height, 62.3, [...]
--- OUTSIDE RECORDS SUMMARY | 2024-04-21 09:14 | XMS_ITS | Continuity of Care Document ---
Author Organization [facility] Pulmonary M edicine Address [address] [place] [address]- Care Team Providers Care Concrete Mixing Plant Superintendent Name Role Phone Lynn GILLIS, Angie Mccormick Primary Care Physician [phone] Encounter [facility] Date(s): 01/26/23 - 02/25/23 [facility] Pulmonary Medicine [address] [place] [id number] Allergies, Adverse Reactions, Alerts Substance [...] Mouth, Daily, # 180 capsule, 3 Refills, [facility] 48120, 162.56, cm, 01/06/22 10:34:00 EDT, Height, 64.1, [...] Care team information Care Team Personnel Name: Rodriguez RNRuby Position: [facility] SN RN Member Role: Primary Care Nurse Name: Lorie Clay Position: [facility] Onco RN Member Role: Primary Care Nurse Name: Angie Bailey MD Position: [facility] Outreach Member Role: PCP Address: Address: [address] [place] [address] - [address] [place] [address] [place], [place] [address]- Care Team Related Persons Name: ANGIE URIARTE Address: home [address] [place] [address] Name: DOUGLAS MERINO Address: home [address] [place] [address]
--- OUTSIDE RECORDS SUMMARY | 2024-04-21 09:14 | XMS_ITS | Continuity of Care Document ---
Author Organization [facility] C ancer Care Address [address] [place] [address]- Care Team Providers Care Truck Driver Helper Name Role Phone Nitish Bailey MD Primary Care Physician [phone] [place] [facility] [place] [id number] Date(s): 07/03/20 - 08/02/20 [facility] Cancer Care [address] [place] [address]- [facility] Attending Physician: Admtr, Ortiz8 Admitting Physician: Admtr, Ar8 Referring Physician: Admtr, Ar8 Allergies, Adverse Reactions, Alerts Substance Reaction Severity [...] Refills, Acute, 05/30/20 11:50:00 EDT, [facility], 162.56, cm, 02/21/20 11:29:00 EDT, Height, 60.3, [...]
--- OUTSIDE RECORDS SUMMARY | 2024-04-21 09:14 | XMS_ITS | Continuity of Care Document ---
Author Organization [facility] ancer Care Address [address] [place] [address]- Care Team Providers Care Sr. Pricing Analyst Name Role Phone Lynn GILLIS, Nitish Mccormick Primary Care Physician [id number] Date(s): 04/09/21 - 05/09/21 [facility] Cancer Care [address] [place] [id number] Attending Physician: Chanelle Miller Admitting Physician: Chanlele Miller Referring Physician: AdmtrChanelle Allergies, Adverse Reactions, [...] 5 Refills, Maintenance, 12/08/20 13:34:00 EST, [facility]/pharmacy #[id number], Partial fill upon patient request if the prescription is for a schedule II opioid drug., 162.56, cm, 07/10/20 14:... Start Date: 12/08/20 Status: Ordered hydroxyurea 500 mg oral capsule See Instructions, TAKE 1 CAPSULES BY MOUTH ALTERNATING WITH 2 CAPSULES BY MOUTH DAILY, # 135 capsule, 1 Refills, Acute, [facility], 162.56, cm, 07/10/20 14:08:00 EDT, Height, 62.3, [...]
--- OUTSIDE RECORDS SUMMARY | 2024-04-21 09:14 | XMS_ITS | Continuity of Care Document ---
Author Organization [facility] C ancer Care Address [address] [place] [address]- Care Team Providers Care Cow Tender Name Role Phone Lynn GILLIS, Nitish Mccormick Primary Care Physician [phone] [facility] [place] Date(s): 05/24/20 - 06/23/20 [facility] Cancer Care [address] [place] [address]- [facility] Allergies, Adverse Reactions, Alerts Substance Reaction Severity [...] Refills, Acute, 05/30/20 11:50:00 EDT, [facility], 162.56, cm, 02/21/20 11:29:00 EDT, Height, 60.3, [...]
--- OUTSIDE RECORDS SUMMARY | 2024-04-21 09:14 | XMS_ITS | Continuity of Care Document ---
Author Organization [facility] Cardiology Address [address] [place] [address]- Care Team Providers Care Ultrasonic Welding Machine Operator Name Role Phone Lynn GILLIS, Nitish Mccormick Primary Care Physician En[place] [facility] [place] Date(s): 02/12/21 - 03/14/21 [facility]iology [address] [place] [id number] Attending Physician: AdmtrChanelle Admitting Physician: AdmtrChanelle Referring Physician: Admtr, Ar8 Allergies, Adverse Reactions, [...] capsule, 5 Refills, Maintenance, 12/08/20 13:34:00 EST, [facility]/pharmacy #[id number], Partial fill upon patient request if the prescription is for a schedule II opioid drug., 162.56, cm, 07/10/20 14:... Start Date: 12/08/20 Status: Ordered hydroxyurea 500 mg oral capsule See Instructions, TAKE 1 CAPSULES BY MOUTH ALTERNATING WITH 2 CAPSULES BY MOUTH DAILY, # 135 capsule, 1 Refills, Acute, [facility], 162.56, cm, 07/10/20 14:08:00 EDT, Height, 62.3, [...]
--- OUTSIDE RECORDS SUMMARY | 2024-04-21 09:14 | XMS_ITS | Continuity of Care Document ---
Author Organization [facility] Cardiology Address [address] [place] [address]- Care Team Providers Care Wellness Nurse Rn Name Role Phone Not on Staff, PCP Primary Care Physician Unavail able [place] [facility] [place]s): 11/23/19 - 03/22/20 [facility] [address] [place] [address]- [facility] Attending Physician: Marvin Capps MD Admitting Physician: Marvin Capps MD Referring Physician: Sarah Hensley Allergies, Adverse [...]
--- OUTSIDE RECORDS SUMMARY | 2024-04-21 09:14 | XMS_ITS | Continuity of Care Document ---
Author Organization [facility] Pulmonary M edicine Address [address] [address]- Care Team Providers Care Exceptional Student Education Teacher Name Role Phone Lynn GILLIS, Nitish Mccormick Primary Care Physician En[facility] [place] Date(s): 11/25/21 - 12/25/21 [facility] Pulmonary Medicine [address] [place] [id number] Attending Physician: Chanelle Miller Admitting Physician: AdmtrChanelle Referring Physician: Admtr, Ar8 [...] CAPSULES, By Mouth, Daily, # 180 capsule, 1 Refills, [facility] STORE 81814, 162.56, cm, 02/12/21 13:42:00 EDT, Height, 68.3, kg, 01/07/21 8:58:00 EDT, Dry Weight Start Date: 06/10/21 Status: Ordered levothyroxine 0.088 mg oral tablet 1 tablet = 88 mcg, By Mouth, Daily, 0 Refills, Maintenance, 02/12/21 13:44:00 EDT, Partial fill upon patient request if the prescription is for a schedule II opioid drug. Start Date: 02/12/21 Status: Ordered levothyroxine 125 mcg (0.125 mg) oral tablet TAKE 1 TABLET BY MOUTH EVERY DAY Start Date: 02/21/20 Status: Ordered Vitamin D3 1000 intl units [...]
--- OUTSIDE RECORDS SUMMARY | 2024-04-21 09:14 | XMS_ITS | Continuity of Care Document ---
Author Organization [facility] Address [address] [place] [address]- Care Team Providers Care Ward Clerk Name Role Phone Not on Staff, PCP Primary Care Physician Unavail able [place] [facility] [place] 02[place]14/20 - 03/15/20 [facility] TRAVEL[facility] ENGINE[facility] Oncology [address] [place] [address]- [facility] Attending Physician: Admjuan pablo, Chanelle Admitting Physician: AdmtrChanelle Referring Physician: Admtr, Ar8 [...]
--- OUTSIDE RECORDS SUMMARY | 2024-04-21 09:14 | XMS_ITS | Continuity of Care Document ---
Author Organization [facility] C ancer Care Address [address] [place] [address]- Care Team Providers Care Motors And Controls Tester Name Role Phone Nitish Bailey MD Primary Care Physician [phone] [place] [facility] [place] 05/13/20 - 06/12/20 [facility] Cancer Care [address] [place] [address]- [facility] Allergies, Adverse Reactions, Alerts Substance Reaction [...] Refills, Acute, 05/30/20 11:50:00 EDT, [facility], 162.56, cm, 02/21/20 11:29:00 EDT, Height, 60.3, [...]
--- OUTSIDE RECORDS SUMMARY | 2024-04-21 09:14 | XMS_ITS | Continuity of Care Document ---
Author Organization [facility] ter Address [address] [place] [address]- Care Team Providers Care Financial Sales Assistant Name Role Phone Lynn GILLIS, Nitish Mccormick Primary Care Physician [place] [facility] [place] Date(s): 05/10/20 - 06/09/[address] [address]- [facility] Allergies, Adverse Reactions, Alerts Substance Reaction Severity [...] Refills, Acute, 05/30/20 11:50:00 EDT, [facility], 162.56, cm, 02/21/20 11:29:00 EDT, Height, 60.3, [...]
--- OUTSIDE RECORDS SUMMARY | 2024-04-21 09:14 | XMS_ITS | Continuity of Care Document ---
Author Organization [facility] ter Address [address] [place] [address]- Care Team Providers Care Fashion Designer Name Role Phone Not on Staff, PCP Primary Care Physician Unavail able Encounter [facility] [place] Date(s): 01/23/20 - 01/23/[address] [address]- [facility] Discharge Disposition: A-D/C Home Attending Physician: Tiana Sandoval MD Admitting Physician: Tiana Sandoval MD Referring Physician: Tiana Sandoval MD Allergies, Adverse Reactions, Alerts Substance Reaction [...] By Mouth, Daily, Adjust as instructed by 's office based on serial CBCs, # 90capsule, 1 Refills, Maintenance, 12/18/19 10:59:00 EDT, [id number], 163, cm, 07/05/19 13:38:00 EDT, Height, 63, kg, 07/05/19 13:38:00 EDT, Dry... Start Date: 12/18/19 Status: Ordered Keflex monohydrate 500 mg oral capsule 1 capsule = 500 mg, By Mouth, Once, 0 Refills, Maintenance, 01/23/20 8:51:00 EDT, Capsule Start Date: 01/23/20 Status: Ordered lisinopril 10 mg oral tablet 10 mg, 1, tablet, By Mouth, Daily, Refills 0, Maintenance, 12/08/18 1:16:33 EST Start Date: 12/08/18 Status: Ordered Synthroid 0.112 mg oral tablet 1 tablet, By Mouth, Daily, # 30 tablet, 5 Refills, Maintenance, Tablet Start Date: 06/22/12 Status: Ordered Vitamin D3 1000 intl units oral capsule 1 capsule = 1,000 International_Units, By Mouth, Daily, # 75 capsule, 0 Refills, Maintenance, 01/08/20 8:18:00 EDT, Capsule Start Date: 01/08/20 Status: Ordered Problem List Condition Effective Dates Status Health Status Inform ant CAD - Coronary artery disease(Confirmed) Active Hyperlipidemia(Confirmed) Active Adnexal mass(Confirmed) Active Results Orders for Microbiology Reports Name Date Sterile Body Fluid Culture W/ Gram Smear 01/23/20 Anaerobic Culture (ANAEROBIC CULTURE) Microbiology Reports TEST:Anaerobic Culture STATUS:Unauthenticated BODY SITE: SOURCE:FLUID COLLECTED DATE/TIME:01/23/20 12:05 PM Anaerobic Culture SPECIMEN DESCRIPTION : FLUID PARACENTESIS SPECIAL REQUESTS : LIMVOL REPORT STATUS : PRELIMINARY REPORT TEST:Sterile Fluid Culture STATUS:Unauthenticated BODY SITE: SOURCE:PARACE COLLECTED DATE/TIME:01/23/20 12:05 PM Sterile Fluid Culture SPECIMEN DESCRIPTION : PARACENTESIS FLUID SPECIAL REQUESTS : LIMVOL GRAM STAIN : 3+ WHITE BLOOD CELLS NO ORGANISMS SEEN REPORT STATUS : PRELIMINARY REPORT Vital Signs Most recent to oldest [Reference Range]: 1 2 3 Height 162.56 cm (01/23/20 12:34 PM) 162.56 cm (01/23/20 9:01 AM) 162.56 cm (01/23/20 8:52 AM) Weight 61.4 kg (01/23/20 9:01 AM) 61.4 kg (01/23/20 8:52 AM) Oxygen Saturation [94-100 %] 100 % (01/23/20 12:34 PM) 100 % (01/23/20 8:38 AM) Pulse Rate [55-90 bpm] 60 bpm (01/23/20 12:34 PM) 64 bpm (01/23/20 8:38 AM) Blood Pressure [90-138/55-84 mm Hg] 157/83mm Hg *H* (01/23/20 12:34 PM) 135/75mm Hg (01/23/20 8:38 AM) Respiratory Rate [16-30 br/min] 18 br/min (01/23/20 12:34 PM) 20 br/min (01/23/20 8:38 AM) Temperature [96.8-100.4 DegF] 97.3 DegF (01/23/20 12:34 PM) 98.3 DegF (01/23/20 8:38 AM) Mode of Delivery (Oxygen) Room air (01/23/20 12:34 PM) Room air (01/23/20 8:38 AM) Blood pressure sites Arm, right (01/23/20 12:34 PM) Arm, left (01/23/20 8:38 AM) Temperature Route Oral (01/23/20 12:34 PM) Oral (01/23/20 8:38 AM) Dry Weight 61.4 kg (01/23/20 8:52 AM) Social History Social History Type Response Smoking Status Former smoker, quit more than 30 days ago entered on: 11/30/18 Sex
--- OUTSIDE RECORDS SUMMARY | 2024-04-21 09:14 | XMS_ITS | Continuity of Care Document ---
Author Organization [facility] ancer Care Address [address] [place] [address]- Care Team Providers Care Waiter/Waitress Cocktail Lounge Name Role Phone Angie Bailey MD Primary Care Physician [phone] [id number] Date(s): 10/27/23 - 11/26/23 [facility] Care [address] [place] [address] Allergies, Adverse Reactions, Alerts Substance [...] Mouth, Daily, # 180 capsule, 3 Refills, [facility] STORE 64733, 162.56, cm, 01/06/22 10:34:00 EDT, Height, 64.1, [...] Team Personnel Name: Ruby Frias RN Position: [facility] SN RN Member Role: Primary Care Nurse Name: Lorie Clay Position: [facility] Onco RN Member Role: Primary Care Nurse Name: Angie Bailey MD Position: [facility] Outreach Member Role: PCP Address: Address: [address] [place] [address] - [address] [place] [address] [employer], [place], [place] [address] Care Team Related Persons Name: ANGIE URIARTE Address: home [address] [place] [address] Name: DOUGLAS MERINO Address: home [address] [place] [address]
--- OUTSIDE RECORDS SUMMARY | 2024-04-21 09:14 | XMS_ITS | Continuity of Care Document ---
Author Organization [facility] Pulmonary M edicine Address [address] [place] [address]- Care Team Providers Care Comptometrist Name Role Phone Lynn GILLIS, Angie Mccormick Primary Care Physician En[place] [facility] [place] Date(s): 06/17/23 - 07/17/23 [facility] Pulmonary Medicine [address] [place] [address] Allergies, Adverse Reactions, Alerts Substance Reaction Severity [...] Daily, # 180 capsule, 3 Refills, [facility] 66493, 162.56, cm, 01/06/22 10:34:00 EDT, Height, 64.1, [...] SYSTEM Outreach Member Role: PCP Address: Address: [address] [place] [address] - [address] [place] [address] [employer], [place], [place] [address] Care Team Related Persons Name: ANGIE URIARTE Address: home [address] [place] [address] Name: DOUGLAS MERINO Address: [address] [place] [address]
--- OUTSIDE RECORDS SUMMARY | 2024-04-21 09:14 | XMS_ITS | Continuity of Care Document ---
Author Organization [facility] ter Address [address] [place] [address]- Care Team Providers Care Director Of Corporate Sales Name Role Phone Nitish Bailey MD Primary Care Physician [phone] Encounter [facility] [place] Date(s): 01/29/22 - 07/08/[address] [address]- Attending Physician: Sarah Hensley Admitting Physician: Sarah Hensley Referring Physician: Sarah Hensley Allergies, Adverse Reactions, [...] Mouth, Daily, # 180 capsule, 3 Refills, [facility] STORE 74558, 162.56, cm, 01/06/22 10:34:00 EDT, Height, 64.1, [...] on: 11/30/18 Sex Patient Care team information Personnel Name: Nitish Bailey MD Address: Address: [address] [place] [address] - [address] [place] [address] [employer], [address]
--- OUTSIDE RECORDS SUMMARY | 2024-04-21 09:14 | XMS_ITS | Continuity of Care Document ---
Author Organization [facility] ter Address [address] [place] [address]- Care Team Providers Care Phone Technician Name Role Phone Bharati GILLIS, Slick Duque Primary Care Physician Encounter [facility] Date(s): 09/25/19 - 09/25/[address] [address]- [facility] Attending Physician: Aron GILLIS, Vahe Bajwa [...]
--- OUTSIDE RECORDS SUMMARY | 2024-04-21 09:14 | XMS_ITS | Continuity of Care Document ---
Author Organization [facility] ancer Care Address [address] [place] [address]- Care Team Providers Care Dairy Consultant Name Role Phone Lynn GILLIS, Nitish Mccormick Primary Care Physician [phone] [id number] Date(s): 01/02/21 - 02/01/21 [facility] Cancer Care [address] [place] [address]- Attending Physician: Chanelle Miller Admitting Physician: Chanelle [...] capsule, 5 Refills, Maintenance, 12/08/20 13:34:00 EST, [facility]/pharmacy #[id number], Partial fill upon patient request if the prescription is for a schedule II opioid drug., 162.56, cm, 07/10/20 14:... Start Date: 12/08/20 Status: Ordered hydroxyurea 500 mg oral capsule See Instructions, TAKE 1 CAPSULES BY MOUTH ALTERNATING WITH 2 CAPSULES BY MOUTH DAILY, # 135 capsule, 1 Refills, Acute, [facility], 162.56, cm, 07/10/20 14:08:00 EDT, Height, 62.3, [...]
--- OUTSIDE RECORDS SUMMARY | 2024-04-21 09:14 | XMS_ITS | Continuity of Care Document ---
Author Organization [facility] ter Address [address] [place] [address]- Care Team Providers Care Buggy Loader Name Role Phone Denis GILLIS, Urszula Mccormick Primary Care Physician [place] [facility] [place](s): 01/11/20 - 02/15/[address] [address]- [facility] Attending Physician: Tiana Sandoval MD Admitting Physician: Tiana Sandoval MD Allergies, Adverse Reactions, [...] oldest [Reference Range]: 1 Height 162.56 cm (01/12/20 9:32 AM) Weight 62.78 kg (01/12/20 9:32 AM) Body Mass Index [18.5-24.99] 23.76 (01/12/20 9:32 AM) Dry Weight 62.78 kg (01/12/20 9:32 AM) Weight Obtained Via Patient/family state d (01/12/20 9:32 AM) Dry Weight Obtained Via Patient/family s tated (01/12/20 9:32 AM) Social History Social History Type Response Smoking Status Former smoker, quit more than 30 days ago entered on: 11/30/18 Sex
--- OUTSIDE RECORDS SUMMARY | 2024-04-21 09:14 | XMS_ITS | Continuity of Care Document ---
Author Organization [facility] ancer Care Address [address] [place] [address]- Care Team Providers Care Academic Guidance Specialist Name Role Phone Lynn GILLIS, Angie Mccormick Primary Care Physician [facility] [id number] Date(s): 08/19/22 - 09/18/22 [facility] Cancer Care [address] [place] [address]- Attending Physician: Chanelle Miller Admitting Physician: Chanelle [...] Mouth, Daily, # 180 capsule, 3 Refills, [facility] STORE 69081, 162.56, cm, 01/06/22 10:34:00 EDT, Height, 64.1, [...] Team Personnel Name: Ruby Frias RN Position: [facility] SN RN Member Role: Primary Care Nurse Name: Angie Bailey MD Position: [facility] Outreach Member Role: PCP Address: Address: [address] [place] [address] - [address] [place] [employer] [place], [place] [address]- Care Team Related Persons Name: NAGIE URIARTE Address: [address] [place] [address] Name: DOUGLAS MERINO Address: [address] [place] [address]
--- OUTSIDE RECORDS SUMMARY | 2024-04-21 09:14 | XMS_ITS | Continuity of Care Document ---
Author Organization [facility] ter Address [address] [place] [address]- Care Team Providers Care Bottle Sorter Name Role Phone Bharati GILLIS, Slick Duque Primary Care Physician En[place] [facility] [place] Date(s): 11/23/19 - 11/23/[address] [address]- [facility] Attending Physician: Sarah Hensley Allergies, Adverse Reactions, Alerts [...]
--- OUTSIDE RECORDS SUMMARY | 2024-04-21 09:14 | XMS_ITS | Continuity of Care Document ---
Author Organization [facility] an[facility] Care Address [address] [place] [address]- Care Team Providers Care Plastic Manager Name Role Phone Nitish Bailey MD Primary Care Physician [place] [facility] [place] 07/10/20 - 08/09/20 [facility] [address] [place] [address]- [facility] Allergies, Adverse Reactions, Alerts Substance Reaction [...] Refills, Acute, 05/30/20 11:50:00 EDT, [facility], 162.56, cm, 02/21/20 11:29:00 EDT, Height, 60.3, [...]
--- OUTSIDE RECORDS SUMMARY | 2024-04-21 09:14 | XMS_ITS | Continuity of Care Document ---
Author Organization [facility] C ancer Care Address [address] [place] [address]- Care Team Providers Care Lens Assistant Name Role Phone Lynn GILLIS, Nitish Mccormick Primary Care Physician [place] [facility] [place] 04/28/22 - 05/28/22 [facility] [address] [place] [address] Allergies, Adverse Reactions, Alerts Substance Reaction Severity [...] Mouth, Daily, # 180 capsule, 3 Refills, [facility] STORE 90450, 162.56, cm, 01/06/22 10:34:00 EDT, Height, 64.1, [...]
== END 2024-04-21 09:34 | disposition home or self-care (01) ==
PROVIDERS: PCP Physician Assistant Medical; Visit Provider Nurse Practitioner Family
DX: H00.014 Hordeolum externum left upper eyelid (principal)
CPT/HCPCS: 99214